=== PATIENT | female | born 1990 | race Caucasian/White ===

== ENCOUNTER 2024-02-02 10:25 | Emergency (ER) | payer OTHER ==
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
[2024-02-02] MEDS ORDERED: Norflex 60 MG/2 ML ONE (11:49)
[2024-02-02] MEDS: Norflex 60 MG/2 ML IM ONE (11:56)
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
[2024-02-02 13:22] VITALS: BP 106/71; PULSE 90; RESP 16; O2SAT 90
== END 2024-02-02 13:22 | disposition home or self-care (01) ==
LOC: ED 10:25
DX: S16.1XXA Strain of muscle, fascia and tendon at neck level, initial encounter (principal); V53.5XXA Driver of pick-up truck or van injured in collision with car, pick-up truck or van in traffic accident, initial encounter; Z79.899 Other long term (current) drug therapy
CPT/HCPCS: 72125; 99285; J2360